=== PATIENT | female | born 1985 | race Caucasian/White ===

== ENCOUNTER 2017-10-29 08:09 | Inpatient (IN) | payer OTHER ==
[2017-10-29] VITALS (14 sets, daily range): BP systolic 107–126; BP diastolic 62–83
[~2017-10-29] VITALS: Ht 154.9 cm; Wt 78.9 kg
[~2017-10-29 08:09] MED LIST: Motrin PO
[2017-10-29] MEDS ORDERED: PRENATAL TABLE1 EAC3 PO (09:00)
[2017-10-29 09:43] LABS: BASOPHIL (%) 0.1 % (0-1); EOSINOPHIL (%) 1.1 % (0-5); EOSINOPHIL COUNT 0.1 K/uL (0-0.3); HEMATOCRIT 35.5 % (36.0-46.0); HEMOGLOBIN 11.6 G/DL (11.9-15.5); IMMATURE GRANULOCYTE (%) 0.6 % (0.0-0.7); LYMPHOCYTE COUNT 1.4 K/uL (1.0-2.8); MCHC 32.7 G/DL (30.0-36.0); MCV 82.8 FL (83-99); MONOCYTE (%) 5.8 % (3-12); MONOCYTE COUNT 0.5 K/uL (0-0.8); NEUTROPHIL (%) 76.4 % (45-76); NEUTROPHIL COUNT 6.7 K/uL (1.8-6.4); PLATELET COUNT 307 K/uL (156-360); RBC DIS.WIDTH-CV 15.4 % (11.8-14.6); RBC DIS.WIDTH-SD 46.9 % (39-53); RED BLOOD COUNT 4.29 M/uL (3.80-5.20); WHITE BLOOD COUNT 8.8 K/uL (4.1-10.2)
[2017-10-30 07:24] VITALS: BP 123/75
[2017-10-30 10:09] LABS: BASOPHIL (%) 0.3 % (0-1); EOSINOPHIL (%) 0.5 % (0-5); EOSINOPHIL COUNT 0.1 K/uL (0-0.3); HEMATOCRIT 33.4 % (36.0-46.0); HEMOGLOBIN 10.8 G/DL (11.9-15.5); IMMATURE GRANULOCYTE (%) 0.4 % (0.0-0.7); LYMPHOCYTE (%) 13.2 % (15-42); LYMPHOCYTE COUNT 1.9 K/uL (1.0-2.8); MCHC 32.3 G/DL (30.0-36.0); MCV 83.5 FL (83-99); MONOCYTE (%) 5.8 % (3-12); MONOCYTE COUNT 0.8 K/uL (0-0.8); NEUTROPHIL (%) 79.8 % (45-76); NEUTROPHIL COUNT 11.6 K/uL (1.8-6.4); PLATELET COUNT 271 K/uL (156-360); RBC DIS.WIDTH-CV 15.9 % (11.8-14.6); RBC DIS.WIDTH-SD 47.8 % (39-53); WHITE BLOOD COUNT 14.6 K/uL (4.1-10.2)
[2017-10-30 14:48] VITALS: BP 128/78
[2017-10-30 23:12] VITALS: BP 113/63
[2017-10-31 07:55] VITALS: BP 122/70
[2017-10-31 14:49] VITALS: BP 119/71
== END 2017-10-31 18:35 | disposition home or self-care (01) | DRG 775 ==
LOC: LDRP-OP 08:09 → 2WEST 08:10 → LDRP-OP 10:22 → 2WEST 18:40 → LDRP-OP 11-26 12:56
PROVIDERS: Advanced Practice Midwife
DX: O70.0 First degree perineal laceration during delivery (principal); O48.0 Post-term pregnancy; Z3A.40 40 weeks gestation of pregnancy; Z37.0 Single live birth; E66.3 Overweight; O99.214 Obesity complicating childbirth; O99.02 Anemia complicating childbirth; D64.9 Anemia, unspecified; Z68.27 Body mass index [BMI] 27.0-27.9, adult
CPT/HCPCS: 85025; J0595; J2590; J7120; Q0169